=== PATIENT | male | born 1945 | race Caucasian/White ===

== ENCOUNTER 2025-05-08 18:50 | Emergency (ER) | payer MEDICARE, SELFPAY ==
[2025-05-08 18:52] VITALS: BP 159/83; PULSE 63; RESP 16; TEMP 36.4; O2SAT 99; BMI 21.9
[2025-05-08 19:38] LABS: Hematocrit 43.1 % (40-54); Hemoglobin 14.5 g/dL (13.0-16.5); Immature Granulocytes Count 0.020 X10^3/uL (0.0-0.0); Mean Corp Hgb Conc 33.6 g/dL (32-36); Mean Corpuscular Volume 88.7 fL (80-94); Mean Platelet Vol. 9.2 fl (6.2-12.0); NRBC Flagged by Analyzer 0 % (0-5); Platelet Count 221 K/mm3 (150-450); RBC Distribution Width CV 12.3 % (11.6-14.6); RBC Distribution Width SD 39.8 fl (35.1-43.9); Red Blood Count 4.86 M/mm3 (4.6-6.2); White Blood Count 4.4 K/mm3 (4.4-11.0)
[2025-05-08 20:05] LABS: Alcohol, Blood (Medical)-Serum < 10.1 mg/dL (<=10.0); Anion Gap 10 (5-15); BUN 13 mg/dL (4-19); BUN/Creat Ratio 16.5 RATIO (10-20); Calcium,Total 9.2 mg/dL (7.6-11.0); Carbon Dioxide 26.3 mmol/L (21.0-32.0); Chloride 103 mmol/L (98-108); Estimated Creatinine Clearance 73.83 ml/min (50-250); Glucose 106 mg/dL (70-99); Potassium 3.9 mmol/L (3.3-5.1)
--- NOTE | 2025-05-08 20:55 | EDS_ITS ---
HPI HPI - Psych History of Present Illness Chief Complaint: Mental Health Detail of Chief Complaint: Evaluation for behavior issues and outburst Informant: spouse/S.O., EMS and other Onset/Context/Timing Onset: Today Context: Sudden Onset Conflict: - ( has been with him the past 2 days. She left to go home. 45 minutes after she left he became agitated. He told staff at nursing facility that he was going to harm himself with a butter knife.) Timing: Intermittent Current Severity: Gone Maximum Severity: Severe Worsened by: Situational factors Relieved by: Removed from environment Associated Symptoms Specific plan (suicidal thought): Not applicable Narrative Narrative: Patient is a 79-year-old male with Alzheimer's disease and behavior issues due to his Alzheimer's disease. He was recent started on Risperdal. He is also on Aricept. Patient has no idea why he is here. He does not know his age, birthdate or month. He does not know what holiday we celebrated and will be celebrating. He knows he is in a building. He believes he is in the hospital. Other than that he does not know location. He does know his name. Patient denies everything. He had a similar episode was in a psychiatric told for 10 days. He was discharged from psychiatric facility about 2 weeks ago. Prior similar symptoms: Yes PFSH PFSH Medical History Psychosis Alzheimer disease Home Medications ?Medication ?Instructions ?Recorded ?Last Taken ?Type donepezil 10 mg tablet (Aricept) 10 mg PO DAILY Unknown History risperidone 0.5 mg tablet 0.5 mg PO QHS 05/08/25 Unkno wn History (Risperdal) Allergy/AdvReac Type Severity Reaction Status Date / Time dexamethasone Allergy unknown Verified 05/08/25 18:58 Family History no significant family his Surgical History no surgical history Social History housing: longterm current occupational status: retired Smoking Status: Never smoker ROS ROS ED Review of Systems ROS Unobtainable: due to mental status EXAM Physical Exam Const Vital Signs: 05/08/25 18:52 Temperature 97.6 F L Temperature Source Temporal Pulse Rate 63 Respiratory Rate 16 Blood Pressure 159/83 H Blood Pressure Mean 108 Pulse Ox 99 Oxygen Delivery Method Room Air Positive well nourished and well developed General Appearance ED: well developed, irritable and NAD HEENT Reports moist mucous membranes normocephalic and atraumatic Eyes PERRL and EOMs intact bilaterally General Eye ED: Negative for scleral icterus Neck no lymphadenopathy, supple and no JVD Resp normal respiratory effort and clear to auscultation bilaterally Cardio S1 normal heart sound, S2 normal heart sound and no murmurs Rate: regular rate Rhythm: regular rhythm GI non-tender, non-distended and no masses Auscultation: normoactive bowel sounds Palpation: soft Rectal Exam: heme negative stool Back/Spine no CVA tenderness Extremity normal to inspection Neuro No oriented x3, CN's II-XII intact bilaterally and no sensory deficits noted Neuro Narrative: He has no clonus or Babinski sign on either side. [place] Coma Scale: document GCS findings Spontaneous Obeys Commands Confused 14 Sensorium / Orientation: alert Motor Exam: strength 5/5 throughout Psych Appearance: other Patient was in a hospital gown when I saw him. He is upset that he is in a hospital gown. Attitude: other Patient is upset because he does not know where he is at or why he is here. Activity / Motor Behavior: appropriate eye contact, fidgetting and hyperactive Speech: loud Mood & Affect: irritable and labile affect Thought Process: other Patient is pleasantly confused. Thought Content: No suicidality, No homicidality, No phobia(s), No hallucination(s), No ideas of reference and No compulsion(s) Attention / Concentration: attention grossly intact and concentration grossly impaired Memory / Cognition: cognition grossly intact and cognition impaired Insight: poor Judgement: poor Skin Skin Narrative: No evidence of self injury MDM MDM MDM Narrative Medical decision making narrative: Case management was consulted. Blood work was obtained to rule out metabolic infectious cause. Fátima executive secretary social welfare for the ER spoke to . Plan is to return him to the nursing facility. She will stay with him overnight. Discussed that she needs to stay away so that he can become accustomed. He apparently had a outbreak when he was at the psychiatric facility for the first week. This has happened before when he does not see his he gets agitated and takes time for him to calm down. Lab Data Attestation: I reviewed the patient's lab results. Lab results narrative: CBC is unremarkable. Basic metabolic panel is unremarkable. Alcohol is nondetected. Labs: Laboratory Results - last 24 hr 05/08/25 19:30 WBC 4.4 RBC 4.86 Hgb 14.5 Hct 43.1 MCV 88.7 MCH 29.8 MCHC 33.6 RDW Std Deviation 39.8 RDW Coeff of Amada 12.3 Plt Count 221 MPV 9.2 Immature Gran % (Auto) 0.500 Neut % (Auto) 59.6 Lymph % (Auto) 25.6 [place] % (Auto) 12.0 H Eos % (Auto) 1.6 Baso % (Auto) 0.7 Absolute Neuts (auto) 2.6 Absolute Lymphs (auto) 1.13 Nucleated RBC % 0 Sodium 139 Potassium 3.9 Chloride 103 Carbon Dioxide 26.3 Anion Gap 10 BUN 13 Creatinine 0.77 Estim Creat Clear Calc 73.83 Est GFR (MDRD) Non-Af 92 BUN/Creatinine Ratio 16.5 Glucose 106 H Calcium 9.2 Ethyl Alcohol < 10.1 Treatment and Re-Evaluation Narrative: Since this occurred again there is no concern for self-harm and this is due to his Alzheimer's and situational will discharge back to the nursing facility since they are willing to except him with said plan. Discharge Plan Triage Chief Complaint: Mental Health ED Provider: Gerry Murphy Dx/Rx/DC Orders Clinical Impression: Alzheimer's dementia with behavioral disturbance, Elevated blood-pressure reading without diagnosis of hypertension, Situational disturbance Instructions: Delirium and Dementia Prescriptions: No Action donepezil [Aricept] 10 mg tablet 10 mg PO DAILY risperidone [Risperdal] 0.5 mg tablet 0.5 mg PO QHS Primary Care Provider: Ange Griffin Referrals: Ange Griffin MD [Primary Care Provider, Internal Medicine] - As Needed Print Language: Romanian Disposition Disposition: Home, Self Care
[2025-05-08 21:11] VITALS: BP 148/74; PULSE 60; RESP 18; TEMP 36.4; O2SAT 98
--- NOTE | 2025-05-08 21:35 | CM.ED ---
Social Work ROSALEE spoke with nurse at [facility] who told SW that patient became agitated when he saw his leaving the facility for the night, patient attempted to exit after left, became agitated, grabbed a butter knife and threatened to harm self. Nurse states that patient then calmed down and by the time police arrived at facility, patient was laying calmly in bed. Nurse states she felt that patient needed time to adjust to [facility] as he just recently admitted in the last two weeks. SW met with patient in ED who was sitting calmly in bed, patient was unable to answer questions due to confusion. SW then met with patient . states she called [facility] prior to arriving at ED, that they told her that he could return tonight as long as she stayed with him. states ability to stay with and states that she did not want him going back to [facility]. states he recently had a 10 day stay at [facility], that he was recently moved to a new environment and she felt that his medication was just starting to work. states today was the best day they have had yet, that he was referring to his room as his home, that he was telling her how comfortable his bed was, and he was overall doing well. states she made the mistake of saying goodbye and telling patient that she would see him tomorrow. states she usually leaves when he is not paying attention and they do not have these issues. SW offered emotional support to as she discussed the difficulty she and patient were going through. No further needs identified at this time. 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
[2025-05-08 22:07] LABS: Barbiturate Urine NEGATIVE (< 200 ng/mL); Benzodiazepine Urine NEGATIVE (< 200 ng/mL); PCP Urine NEGATIVE (< 25 ng/mL); THC Urine NEGATIVE (< 50 ng/mL)
== END 2025-05-09 02:43 | disposition home or self-care (01) ==
PROVIDERS: Emergency Provider Emergency Medicine; PCP Internal Medicine; Visit Provider Emergency Medicine
DX: G30.9 Alzheimer's disease, unspecified (principal); F02.818 Dementia in other diseases classified elsewhere, unspecified severity, with other behavioral disturbance; R03.0 Elevated blood-pressure reading, without diagnosis of hypertension; R45.1 Restlessness and agitation; Z79.899 Other long term (current) drug therapy
CPT/HCPCS: 80048; 80307; 82077; 85025; 99285